=== PATIENT | male | born 1970 | race Two or more races ===

== ENCOUNTER 2019-01-08 12:15 | Emergency (ER) | payer SELFPAY ==
--- NOTE | 2019-01-08 12:35 | EDPHY ---
H & P Stated Complaint: Fever/chills x5D, denies N/V/D, using tylenol Time Seen by Provider: 01/08/19 12:34 - Personal History Current Tetanus/Diphtheria Vaccine: Unsure - Medical/Surgical History Hx Asthma: No Hx Chronic Respiratory Disease: No Hx Diabetes: Yes Hx Cardiac Disease: No Hx Renal Disease: No Hx Cirrhosis: No Hx Alcoholism: No Hx HIV/AIDS: No Hx Splenectomy or Spleen Trauma: No Other PMH: Dialysis MWTH, HTN - Social History Smoking Status: Never smoked Constitutional: Initial Vital Signs Temperature (C) 37.4 C 01/08/19 12:19 Heart Rate 103 H 01/08/19 12:19 Respiratory Rate 16 01/08/19 12:19 Blood Pressure 122/78 H 01/08/19 12:19 O2 Sat (%) 94 01/08/19 12:19 O2 Delivery Mode Room Air Allergies/Adverse Reactions: No Known Allergies Allergy (Verified 01/08/19 12:19) Home Medications: Medication Instructions Recorded Caltrate Gummy Bites 600 mg PO 08/13/16 Forrosac 30 mg 08/13/16 Lercadip 30 mg TID 08/13/16 Losec 20 DAILY 08/13/16 Mimpara 08/13/16 One Alpha 0.25 DAILY 08/13/16 Prazosin HCl 3 mg DAILY 08/13/16 RENVELA 800 mg TID 08/13/16 Medical Decision Making ED Course/Re-evaluation: CHIEF COMPLAINT: Fevers and chills HISTORY OF PRESENT ILLNESS: 48-year-old gentleman visiting from [facility] for his son's graduation. He has had 5 days of fevers and chills which have been relieved with ibuprofen. He had a kidney transplant done 2 years ago. He is doing quite well with his transplant and denies any rejection or any concerns. He is fully immunocompromised on prednisone and 2 other anti rejection medicines. His concern is a fever without any specific source while he is immunocompromised. He denies headache. Denies earache or sore throat. He denies any abdominal pain nausea vomiting or diarrhea. He had denies any skin infections. He denies any urinary burning or urinary symptoms. REVIEW OF SYSTEMS: A comprehensive 10 system review of systems is otherwise negative aside from elements mentioned in the history of present illness and medical decision making. PHYSICAL EXAM: HR, BP, O2 Sat, RR. Temp noted General Appearance: Alert, well hydrated, appropriate, and non-toxic appearing. Head: Atraumatic without scalp tenderness or obvious injury Eyes: Pupils equal, round, reactive to light and accommodation, EOMI, no trauma , no injection. Ears: Clear bilaterally, no perforation, normal landmarks Nose: Atraumatic, no rhinorrhea, clear. Throat: There is no erythema or exudates, no lesions, normal tonsils, mucus membranes moist. Neck: Supple, 2+ carotid upstroke, nontender, no lymphadenopathy. Respiratory: No retractions, no distress, no wheezes, and no accessory muscle use. Lungs are clear to auscultation bilaterally. Cardiovascular: Regular rate and rhythm, no murmurs, rubs, or gallops. Bilateral carotid, radial, dorsalis pedis, and posterior tibial pulses intact. Good capillary refill all extremities. Gastrointestinal: Abdomen is soft, nontender, non-distended, no masses, no rebound, no guarding, no peritoneal signs. Musculoskeletal: Normal active ROM of all extremities, atraumatic. Neurological: Alert, appropriate, and interactive. The patient has normal DTRs and non-focal cranial nerves, motor, sensory, and cerebellar exam. Skin: No rashes, good turgor, no nodules on palpation. Past medical history: Kidney transplant Past surgical history: Kidney transplant Family history: Noncontributory Social history: , lives in [facility], visiting for a month, son lives here. Denies alcohol or drug abuse. DIAGNOSTICS/PROCEDURES/CRITICAL CARE TIME: Study: PA and Lateral Chest X-ray Indication: Fever of unknown origin Results: After viewing the images myself on the PACS system. My interpretation of the images is: no acute process. The radiologist interpretation is pending at the time of this dictation. I have discussed the above x-rays with the radiologist. DIFFERENTIAL DIAGNOSIS: The differential diagnosis for the patient's fever included but was not limited to pneumonia, urinary tract infection, viral syndrome, meningitis, and sepsis. MEDICAL DECISION MAKING: This patient is fully immunocompromised with a fever of unknown origin currently I cannot find any specifics on physical exam. Laboratory studies including lactate, blood cultures, urinalysis are pending. 1309: Reassessed patient and discussed laboratory findings. He reports that his creatinine was last 2.2 and usually runs 1.9-2.3; his creatinine today is 2.7 1328: I consulted with Dr. Parra, infectious disease, regarding this patient. She believes that this patient doesn't need any antibiotics as the fever is due to an unknown source. She will see him as an outpatient in the clinic. 1330: Reassessed patient and discussed plan for follow up with Dr. Parra. Per the patient his physician in [facility] would like the patient to start on an antibiotic. I will prescribe him a z-pack. Return precautions provided; patient is comfortable with this plan. - Data Points Laboratory Results: Laboratory Results 01/08/19 12:40 01/08/19 12:40 01/08/19 01/08/19 01/08/19 12:45 12:40 12:40 WBC RBC Hgb Hct MCV MCH MCHC RDW Plt Count MPV Neut % (Auto) Lymph % (Auto) Mitchell % (Auto) Eos % (Auto) Baso % (Auto) Nucleat RBC Rel Count Absolute Neuts (auto) Absolute Lymphs (auto) Absolute Monos (auto) Absolute Eos (auto) Absolute Basos (auto) Absolute Nucleated RBC Immature Gran % Immature Gran # RBC/WBC/PLT Morphology Platelet Estimate PT 13.5 SEC SEC (12.0-15.0) INR 1.07 (0.83-1.16) APTT 31.7 SEC SEC (23.0-38.0) VBG Lactic Acid Sodium 133 mEq/L L mEq/L (135-145) Potassium 4.1 mEq/L mEq/L (3.5-5.2) Chloride 101 mEq/L mEq/L (97-110) Carbon Dioxide 18 mEq/l L mEq/l (22-31) Anion Gap 14 mEq/L mEq/L (6-14) BUN 25 mg/dL H mg/dL (7-23) Creatinine 2.7 mg/dL H mg/dL (0.7-1.3) Estimated GFR 25 Glucose 104 mg/dL H mg/dL (70-100) Calcium 9.9 mg/dL mg/dL (8.5-10.4) Total Bilirubin 3.2 mg/dL H mg/dL (0.1-1.4) Conjugated Bilirubin 1.1 mg/dL H mg/dL (0.0-0.5) Unconjugated Bilirubin 2.1 mg/dL H mg/dL (0.0-1.1) Urine Color SAL Urine Appearance HAZY Urine pH 5.0 (5.0-7.5) Ur Specific [place] 1.019 (1.002-1.030) Urine Protein 1+ H (NEGATIVE) Urine Ketones NEGATIVE (NEGATIVE) Urine Blood NEGATIVE (NEGATIVE) Urine Nitrate NEGATIVE (NEGATIVE) Urine Bilirubin NEGATIVE (NEGATIVE) Urine Urobilinogen NEGATIVE EU EU (0.2-1.0) Ur Leukocyte Esterase NEGATIVE (NEGATIVE) Urine RBC 1-3 /hpf /hpf (0-3) Urine WBC 1-3 /hpf /hpf (0-3) Ur Epithelial Cells TRACE /lpf /lpf (NONE-1+) Urine Bacteria TRACE /hpf H /hpf (NONE SEEN) Urine Glucose NEGATIVE (NEGATIVE) 01/08/19 01/08/19 12:40 12:40 WBC 11.27 10^3/uL H 10^3/uL (3.80-9.50) RBC 4.66 10^6/uL 10^6/uL (4.40-6.38) Hgb 13.5 g/dL L g/dL (13.7-17.5) Hct 43.4 % % (40.0-51.0) MCV 93.1 fL fL (81.5-99.8) MCH 29.0 pg pg (27.9-34.1) MCHC 31.1 g/dL L g/dL (32.4-36.7) RDW 13.1 % % (11.5-15.2) Plt Count 212 10^3/uL 10^3/uL (150-400) MPV 10.4 fL fL (8.7-11.7) Neut % (Auto) 74.6 % H % (39.3-74.2) Lymph % (Auto) 10.5 % L % (15.0-45.0) Mitchell % (Auto) 13.8 % H % (4.5-13.0) Eos % (Auto) 0.3 % L % (0.6-7.6) Baso % (Auto) 0.4 % % (0.3-1.7) Nucleat RBC Rel Count 0.0 % % (0.0-0.2) Absolute Neuts (auto) 8.41 10^3/uL H 10^3/uL (1.70-6.50) Absolute Lymphs (auto) 1.18 10^3/uL 10^3/uL (1.00-3.00) Absolute Monos (auto) 1.56 10^3/uL H 10^3/uL (0.30-0.80) Absolute Eos (auto) 0.03 10^3/uL 10^3/uL (0.03-0.40) Absolute Basos (auto) 0.05 10^3/uL 10^3/uL (0.02-0.10) Absolute Nucleated RBC 0.00 10^3/uL 10^3/uL (0-0.01) Immature Gran % 0.4 % % (0.0-1.1) Immature Gran # 0.05 10^3/uL 10^3/uL (0.00-0.10) RBC/WBC/PLT Morphology TNP Platelet Estimate TNP PT INR APTT VBG Lactic Acid 0.9 mmol/L mmol/L (0.7-2.1) Sodium Potassium Chloride Carbon Dioxide Anion Gap BUN Creatinine Estimated GFR Glucose Calcium Total Bilirubin Conjugated Bilirubin Unconjugated Bilirubin Urine Color Urine Appearance Urine pH Ur Specific [place] Urine Protein Urine Ketones Urine Blood Urine Nitrate Urine Bilirubin Urine Urobilinogen Ur Leukocyte Esterase Urine RBC Urine WBC Ur Epithelial Cells Urine Bacteria Urine Glucose Departure - Departure Disposition: Home, Routine, Self-Care Clinical Impression: Fever Qualifiers: Fever type: due to other condition Qualified Code(s): R50.81 - Fever presenting with conditions classified elsewhere Condition: Good Instructions: Fever in Adults (ED) Additional Instructions: 1. Buy a thermometer and take your temperature. 2. Follow up with Dr. Parra, infectious disease physician, regarding the fever of an unknown source. 3. Return to the Emergency Department for fever, chest pain, shortness of breath , increasing pain or other worsening of condition. 4. Take the Z-pack as prescribed. Referrals: Michaela Parra MD [Medical Doctor] - As per Instructions
[2019-01-08 12:59] LABS: PLATELET COUNT 212 10^3/uL (150-400)
[2019-01-08 13:07] LABS: INR 1.07 (0.83-1.16); PROTIME(PATIENT) 13.5 SEC (12.0-15.0)
[2019-01-08 13:48] VITALS: BP 117/79
== END 2019-01-08 13:49 | disposition home or self-care (01) ==
DX: J40 Bronchitis, not specified as acute or chronic (principal); R50.81 Fever presenting with conditions classified elsewhere; I10 Essential (primary) hypertension